=== PATIENT | female | born 1980 | race Caucasian/White ===

== ENCOUNTER 2018-10-20 11:21 | Emergency (ER) | payer SELFPAY ==
[2018-10-20] MEDS: LIDOCAINE 1% (MDV) 20 ML INJ SC (12:26)
[2018-10-20 12:28] LABS: ADD MAN DIFF? NO
[2018-10-20 12:30] LABS: WHITE BLOOD COUNT 13.6 10^3/ul (4.8-10.8)
[2018-10-20 12:30] LABS: ABNORMAL IP MESSAGE 1; BASOPHILS % 0.3 % (0.0-2.0); EOSINOPHILS # 0.1 10^3/ul (0.0-0.5); HEMATOCRIT 42.7 % (37.0-47.0); HEMOGLOBIN 14.4 g/dl (12.0-16.0); LYMPHOCYTES # 0.5 10^3/ul (0.8-2.9); LYMPHOCYTES % 3.8 % (15.0-51.0); MEAN CORPUSCULAR HEMOGLOBIN 30.4 pg (29.0-33.0); MEAN CORPUSCULAR HGB CONC 33.7 g/dl (32.0-37.0); MEAN CORPUSCULAR VOLUME 90.3 fl (82.0-101.0); MEAN PLATELET VOLUME 10.6 fl (7.4-10.4); MONOCYTE # 0.3 10^3/ul (0.3-0.9); MONOCYTES % 2.4 % (0.0-11.0); NEUTROPHIL # 12.5 10^3/ul (1.6-7.5); PLATELET COUNT 271 10^3/UL (140-415); RED BLOOD COUNT 4.73 10^6/ul (4.20-5.40); RED CELL DISTRIBUTION WIDTH 12.3 % (11.5-14.5)
[2018-10-20 12:33] LABS: POSITIVE DIFF @See below
[2018-10-20 12:45] LABS: INR 0.92; PROTIME 12.5 Sec (11.9-14.9)
[2018-10-20 12:46] LABS: PARTIAL THROMBOPLASTIN TIME 24.4 Sec (23.0-35.0)
[2018-10-20 12:53] LABS: ANION GAP 12 (5-13); BLOOD UREA NITROGEN 13 mg/dl (7-20); CALCIUM 10.4 mg/dl (8.4-10.2); CARBON DIOXIDE 22 mmol/L (21-31); CHLORIDE 105 mmol/L (97-110); CREATININE 0.76 mg/dl (0.44-1.00); Estimated GFR > 60 mL/min (>60); GLUCOSE 128 mg/dl (70-220); POTASSIUM 4.3 mmol/L (3.5-5.1); SODIUM 139 mmol/L (135-144)
[2018-10-20 12:56] LABS: ETHANOL < 10.0 mg/dl (0-0)
[2018-10-20 13:05] LABS: TROPONIN-I < 0.012 ng/ml (0.000-0.120)
[2018-10-20 13:54] LABS: AMPHETAMINE/METHAMPHETAMINE Negative (NEGATIVE); BARBITURATES Negative (NEGATIVE); BENZODIAZEPINES Negative (NEGATIVE); COCAINE Negative (NEGATIVE); OPIATES Negative (NEGATIVE)
[2018-10-20 14:07] LABS: CANNABINOIDS Positive (NEGATIVE)
[2018-10-20] MEDS: ACETAMINOPHEN 500 MG TAB PO (14:25)
[2018-10-20] MEDS: ONDANSETRON 4 MG INJ IV (14:25)
== END 2018-10-20 14:34 | disposition home or self-care (01) ==
LOC: E/R 11:21
DX: S09.90XA Unspecified injury of head, initial encounter (principal); R41.82 Altered mental status, unspecified; R55 Syncope and collapse; W01.198A Fall on same level from slipping, tripping and stumbling with subsequent striking against other object, initial encounter
CPT/HCPCS: 36415; 70450; 71045; 80048; 80307; 82962; 84484; 84703; 85025; 85610; 85730; 93005; 96374; 99285-25